=== PATIENT | male | born 1990 | race Caucasian/White ===

== ENCOUNTER 2020-08-26 09:51 | Outpatient (CLI) | payer BC | END 2020-08-26 09:52 | disposition home or self-care (01) | LOC: CSHULT 09:51 | PROVIDERS: ATTEND Internal Medicine Gastroenterology | DX: K58.0 Irritable bowel syndrome with diarrhea (principal); R74.01 Elevation of levels of liver transaminase levels; R16.0 Hepatomegaly, not elsewhere classified; K76.0 Fatty (change of) liver, not elsewhere classified; K82.8 Other specified diseases of gallbladder | CPT/HCPCS: 76705 ==